=== PATIENT | female | born 1975 | race African-American/Black ===

== ENCOUNTER → 2022-05-31 | Outpatient (REF) | payer BC ==
[2022-05-31 19:08] LABS: BACTERIA, URINE SMALL AMOUNT; HYALINE CAST, URINE NONE SEEN /lpf (0-1); MUCUS, URINE SMALL AMOUNT (NEGATIVE); RBC, URINE 0-1 /hpf (0-3); SQUAMOUS EPITHELIAL CELL URINE SMALL AMOUNT /hpf (SMALL AMT)
== END ==
LOC: M LAB REF 16:56
PROVIDERS: ATTEND Internal Medicine
DX: R31.9 Hematuria, unspecified (principal)

== ENCOUNTER → 2022-05-31 | Outpatient (REF) | payer BC ==
[2022-05-31 18:05] LABS: FERRITIN 39.9 NG/ML (7.3-270.7)
[2022-05-31 18:07] LABS: PERCENT SATURATION 22.5 % (13.2-45.0)
== END ==
LOC: M LAB REF 16:55
PROVIDERS: ATTEND Internal Medicine
DX: D64.9 Anemia, unspecified (principal)

== ENCOUNTER → 2023-04-17 | Outpatient (REF) | payer BC | LOC: M SFHCWAGY 17:21 | PROVIDERS: ATTEND Nurse Practitioner Family | DX: Z12.4 Encounter for screening for malignant neoplasm of cervix (principal) | CPT/HCPCS: 87624; G0123 ==

== ENCOUNTER → 2023-04-17 | Outpatient (CLI) | payer BC | LOC: M WHC 15:01 | PROVIDERS: ATTEND Nurse Practitioner Family | DX: Z12.31 Encounter for screening mammogram for malignant neoplasm of breast (principal); R92.343 Mammographic extreme density, bilateral breasts ==

== ENCOUNTER 2023-08-06 16:46 | Observation (INO) | payer BC ==
[~2023-08-06] VITALS: Ht 165.1 cm; Wt 53.7 kg
[~2023-08-06 16:46] MED LIST: ATEN25TA PO; FOLI1TAB11 PO; HYDR500C3 PO; LISI5TAB11 PO
[2023-08-06] MEDS: MORPHINE 4 MG/ML 1ML VIAL IV ONE ×2 (17:48→21:06)
[2023-08-06] MEDS: NS 1,000 ML IV ONE (17:48)
[2023-08-06 17:49] LABS: VENOUS BASE EXCESS -1.1 (-2.0-2.0); VENOUS HCO3 23.5 MMOL/L (23.0-27.0); VENOUS O2 SATURATION 69.1 % (60.0-80.0); VENOUS PARTIAL PRESSURE CO2 38.2 mmHg (38.0-50.0); VENOUS PH 7.406 UNITS (7.330-7.430); VENOUS STANDARD HCO3 23.2 MMOL/L; VENOUS TOTAL CO2 24.6 MMOL/L (24.0-28.0)
[2023-08-06 17:56] LABS: MEAN CORPUSCULAR HEMOGLOBIN 29.1 pg (27.0-33.0); MEAN CORPUSCULAR HGB CONC 35.6 g/dl (32.0-36.5); MEAN CORPUSCULAR VOLUME 81.7 fl (80.0-96.0); PLATELET COUNT, AUTOMATED 504 10^3/uL (150-450); RED BLOOD COUNT 2.13 10^6/uL (4.00-5.40); WHITE BLOOD COUNT 11.6 10^3/uL (4.0-10.0)
[2023-08-06 18:00] LABS: HEMATOCRIT 17.4 % (36.0-47.0)
[2023-08-06 18:01] LABS: HEMOGLOBIN 6.2 g/dl (12.0-15.5)
[2023-08-06 18:12] LABS: INR 1.11; PROTHROMBIN TIME 13.9 SECONDS (12.5-14.5)
[2023-08-06 18:21] LABS: BASOPHILS 1 % (0-1); LYMPHOCYTES 12 % (16-44); MONOCYTES 1 % (0-5); NEUTROPHILS 86 % (28-66); PLATELET ESTIMATE INCREASED (NORMAL)
[2023-08-06 18:22] LABS: ANISOCYTOSIS 4+; POIKILOCYTOSIS 3+; SICKLE CELLS 3+
[2023-08-06 18:24] LABS: LIPASE 56 U/L (12-53)
[2023-08-06 18:27] LABS: ALBUMIN 3.3 G/DL (3.2-5.2); ALKALINE PHOSPHATASE 217 U/L (46-116); ALT/SGPT 40 U/L (7.0-40); AST/SGOT 100 U/L (<34); BILIRUBIN,DIRECT 1.7 MG/DL (<0.4); BILIRUBIN,TOTAL 4.5 MG/DL (0.3-1.2); BLOOD UREA NITROGEN 22 MG/DL (9-23); CALCIUM LEVEL 8.5 MG/DL (8.5-10.1); CARBON DIOXIDE LEVEL 24 MMOL/L (20-31); CHLORIDE LEVEL 104 MMOL/L (98-107); CK-MB VALUE MASS < 1.0 NG/ML (<3.6); CREATININE FOR GFR 1.19 MG/DL (0.55-1.30); GLOMERULAR FILTRATION RATE 51.3 (>58); GLUCOSE, FASTING 97 MG/DL (60-100); HCG, SERUM QUALITATIVE NEGATIVE (NEGATIVE); MAGNESIUM LEVEL 1.9 MG/DL (1.8-2.4); POTASSIUM SERUM 4.6 MMOL/L (3.5-5.1); SODIUM LEVEL 134 MMOL/L (136-145); TOTAL PROTEIN 7.5 G/DL (5.7-8.2)
[2023-08-06 18:29] LABS: RSV AMPLIFICATION NEGATIVE (NEGATIVE)
[2023-08-06 18:29] LABS: TARGET CELLS 1+
[2023-08-06 18:31] LABS: FREE T4 1.01 NG/DL (0.89-1.76); THYROID STIMULATING HORMONE 1.875 uIU/ML (0.55-4.78)
[2023-08-06 18:33] LABS: CPK CREATINE PHOSPHOKINASE 95 U/L (34-145); MB/CK RELATIVE INDEX 1.05 (< OR =4)
[2023-08-06 19:32] LABS: CK-MB VALUE MASS < 1.0 NG/ML (<3.6); CPK CREATINE PHOSPHOKINASE 83 U/L (34-145)
[2023-08-06] MEDS: ONDANSETRON 4MG 2ML VIAL IV ONE (21:06)
[2023-08-06] MEDS ORDERED: MULT-90 PO (22:41)
[2023-08-06] MEDS ORDERED: VITAD400CA PO (22:41)
[2023-08-06] MEDS ORDERED: HOME MED LIST COMPLETE! XX SCH (22:45)
[2023-08-06 23:10] VITALS: BP 128/66; TEMP 97; O2SAT 98
[2023-08-06] MEDS: NS 1,000 ML IV SCH (23:50)
[2023-08-07] VITALS (16 sets, daily range): BP systolic 105–143; BP diastolic 52–75; TEMP 96.8–100.9; O2SAT 91–98
[2023-08-07] MEDS: HYDROXYUREA 500 MG CAP PO SCH (00:41)
[2023-08-07] MEDS ORDERED: ONDANSETRON 4MG 2ML VIAL IV PRN (02:00)
[2023-08-07] MEDS: HYDROMORPHONE HCL 0.5 MG/ 0.5 ML SYRINGE IV PRN (03:24)
[2023-08-07] MEDS: HEPARIN SOD (PORCINE) 5000UNITS/ML 1ML VIAL/SYRINGE SC SCH (05:00)
[2023-08-07 06:35] LABS: MEAN CORPUSCULAR HEMOGLOBIN 28.9 pg (27.0-33.0); MEAN CORPUSCULAR HGB CONC 34.9 g/dl (32.0-36.5); MEAN CORPUSCULAR VOLUME 82.8 fl (80.0-96.0); PLATELET COUNT, AUTOMATED 504 10^3/uL (150-450); RED BLOOD COUNT 2.04 10^6/uL (4.00-5.40)
[2023-08-07 06:44] LABS: HEMATOCRIT 16.9 % (36.0-47.0)
[2023-08-07 06:48] LABS: HEMOGLOBIN 5.9 g/dl (12.0-15.5)
[2023-08-07 07:43] LABS: ALBUMIN 2.7 G/DL (3.2-5.2); ALKALINE PHOSPHATASE 190 U/L (46-116); ALT/SGPT 32 U/L (7.0-40); AST/SGOT 76 U/L (<34); BILIRUBIN,TOTAL 2.9 MG/DL (0.3-1.2); BLOOD UREA NITROGEN 14 MG/DL (9-23); CALCIUM LEVEL 8.1 MG/DL (8.5-10.1); CARBON DIOXIDE LEVEL 24 MMOL/L (20-31); CHLORIDE LEVEL 113 MMOL/L (98-107); CREATININE FOR GFR 0.85 MG/DL (0.55-1.30); GLOMERULAR FILTRATION RATE > 60.0 (>58); GLUCOSE, FASTING 104 MG/DL (60-100); POTASSIUM SERUM 4.2 MMOL/L (3.5-5.1); SODIUM LEVEL 141 MMOL/L (136-145); TOTAL PROTEIN 6.5 G/DL (5.7-8.2)
[2023-08-07] MEDS: IBUPROFEN 600MG TAB PO PRN (13:16)
[2023-08-07 14:33] LABS: HEMATOCRIT 22.4 % (36.0-47.0); HEMOGLOBIN 7.9 g/dl (12.0-15.5)
[2023-08-07] MEDS ORDERED: ACETAMINOPHEN TAB 650MG DOSE (2X325MG) PO PRN (15:50)
[2023-08-08] VITALS (8 sets, daily range): BP systolic 120–144; BP diastolic 64–76; TEMP 97.7–98.6; O2SAT 89–99
[2023-08-08 07:27] LABS: BASO % 0.4 % (0.0-1.0); EOS # 0.4 10^3/uL (0.0-0.5); EOS % 5.1 % (0.0-3.0); LYMPH # 1.5 10^3/uL (1.5-5.0); LYMPH % 17.6 % (24.0-44.0); MEAN CORPUSCULAR HEMOGLOBIN 29.5 pg (27.0-33.0); MEAN CORPUSCULAR HGB CONC 35.2 g/dl (32.0-36.5); MEAN CORPUSCULAR VOLUME 83.8 fl (80.0-96.0); MONO # 0.4 10^3/uL (0.0-0.8); MONO % 4.5 % (2.0-8.0); NEUTROPHILS # 6.1 10^3/uL (1.5-8.5); NEUTROPHILS % 71.9 % (36.0-66.0); PLATELET COUNT, AUTOMATED 427 10^3/uL (150-450); RED BLOOD COUNT 2.34 10^6/uL (4.00-5.40); WHITE BLOOD COUNT 8.5 10^3/uL (4.0-10.0)
[2023-08-08 07:28] LABS: HEMATOCRIT 19.6 % (36.0-47.0)
[2023-08-08 07:29] LABS: HEMOGLOBIN 6.9 g/dl (12.0-15.5)
[2023-08-08 12:06] LABS: HEMATOCRIT 18.9 % (36.0-47.0); HEMOGLOBIN 6.7 g/dl (12.0-15.5)
[2023-08-08] MEDS: FLUTICASONE PROP 0.05% NASAL SPRAY 16 GM (FLONASE) NARES SCH (14:00)
[2023-08-08 16:59] LABS: HEMOGLOBIN 7.2 g/dl (12.0-15.5)
[2023-08-08 17:12] LABS: HEMATOCRIT 20.4 % (36.0-47.0)
== END 2023-08-08 19:37 | disposition home or self-care (01) ==
LOC: M ED 16:46 → M ED INP 16:47 → M MSPAV 23:11
PROVIDERS: ADMIT Internal Medicine; ATTEND Student in an Organized Health Care Education/Training Program
DX: D57.00 Hb-SS disease with crisis, unspecified (principal); R50.9 Fever, unspecified; R07.9 Chest pain, unspecified; R10.9 Unspecified abdominal pain; E86.0 Dehydration; R11.2 Nausea with vomiting, unspecified; R76.0 Raised antibody titer; M90.58 Osteonecrosis in diseases classified elsewhere, other site; Z90.49 Acquired absence of other specified parts of digestive tract; Z83.2 Family history of diseases of the blood and blood-forming organs and certain disorders involving the immune mechanism; Z79.899 Other long term (current) drug therapy
CPT/HCPCS: 36415; 36430; 71046; 74018; 80048; 80053; 80076; 82550; 82553; 82803; 83020; 83690; 83735; 83880; 84439; 84443; 84484; 84703; 85014; 85018; 85025; 85027; 85610; 85660; 85730; 86140; 86850; 86900; 86901; 86920; 87040; 87486; 87581; 87631; 87633; 87798; 93005; 93041; 94760; 96361; 96372; 96374; 96375; 96376; 97161; 99285; J1170; J2405; P9016

== ENCOUNTER 2023-08-22 08:32 | Inpatient (IN) | payer BC ==
[2023-08-22] VITALS (9 sets, daily range): BP systolic 99–120; BP diastolic 55–65; TEMP 98.1–100.2; O2SAT 78–98
[~2023-08-22] VITALS: Ht 165.1 cm; Wt 54.7 kg
[~2023-08-22 08:32] MED LIST changes: +MULT-90 PO; +VITAD400CA PO
[2023-08-22] MEDS ORDERED: MOM 30ML SUSPENSION UDC PO PRN (09:05)
[2023-08-22] MEDS ORDERED: ACETAMINOPHEN TAB 650MG DOSE (2X325MG) PO PRN (09:05)
[2023-08-22] MEDS ORDERED: ISOVUE-370 76% 100ML VIAL As Ordered ONE (09:29)
[2023-08-22 09:52] LABS: MEAN CORPUSCULAR HEMOGLOBIN 32.7 pg (27.0-33.0); MEAN CORPUSCULAR VOLUME 89.1 fl (80.0-96.0); PLATELET COUNT, AUTOMATED 324 10^3/uL (150-450); RED BLOOD COUNT 1.56 10^6/uL (4.00-5.40); WHITE BLOOD COUNT 25.9 10^3/uL (4.0-10.0)
[2023-08-22 09:54] LABS: HEMATOCRIT 13.9 % (36.0-47.0); HEMOGLOBIN 5.1 g/dl (12.0-15.5)
[2023-08-22 09:55] LABS: MEAN CORPUSCULAR HGB CONC 36.7 g/dl (32.0-36.5)
[2023-08-22 10:07] LABS: INR 1.28; PROTHROMBIN TIME 15.6 SECONDS (12.5-14.5)
[2023-08-22 10:19] LABS: ALBUMIN 3.2 G/DL (3.2-5.2); BILIRUBIN,TOTAL 6.7 MG/DL (0.3-1.2); CALCIUM LEVEL 8.9 MG/DL (8.5-10.1); CREATININE FOR GFR 1.87 MG/DL (0.55-1.30); GLOMERULAR FILTRATION RATE 30.5 (>58); POTASSIUM SERUM 4.6 MMOL/L (3.5-5.1); TOTAL PROTEIN 7.8 G/DL (5.7-8.2)
[2023-08-22 10:30] LABS: PROCALCITONIN 3.75 ng/ml
[2023-08-22] MEDS: LR 1,000 ML IV ONE ×2 (11:25→13:33)
[2023-08-22] MEDS ORDERED: HYDROMORPHONE HCL 0.5 MG/ 0.5 ML SYRINGE IV PRN (11:35)
[2023-08-22] MEDS: HYDROMORPHONE HCL 0.5 MG/ 0.5 ML SYRINGE IV PRN (11:53)
[2023-08-22] MEDS ORDERED: IBUP200C28 PO (12:20)
[2023-08-22] MEDS ORDERED: HOME MED LIST COMPLETE! XX SCH (12:25)
[2023-08-22] MEDS: LR 1,000 ML IV SCH (12:30)
[2023-08-22 12:53] LABS: C REACTIVE PROTEIN QUANTITATIV 12.1 MG/DL (<1.0)
[2023-08-22] MEDS ORDERED: HEPARIN SOD (PORCINE) 5000UNITS/ML 1ML VIAL/SYRINGE IV ONE (14:10)
[2023-08-22] MEDS ORDERED: HEPARIN SOD (PORCINE) 5000UNITS/ML 1ML VIAL/SYRINGE IV PRN (14:10)
[2023-08-22 14:12] LABS: ABG BASE EXCESS -3.5 (-2.0-2.0); ABG HCO3 21.2 MMOL/L (22.0-26.0); ABG PARTIAL PRESSURE CO2 35.4 mmHg (35.0-45.0); ABG PARTIAL PRESSURE O2 68.1 mmHg (75.0-100.0); ABG STANDARD HCO3 21.4 MMOL/L. (22.0-26.0); ABG TOTAL CO2 22.3 MMOL/L (22.0-29.0); ABG pH (ARTERIAL) 7.395 UNITS (7.350-7.450)
[2023-08-22] MEDS: PIPERACILLIN/TAZOBACTAM SOD 3.375 GM in D5W MINI-BAG PLUS 50 ML IV SCH (14:58)
[2023-08-22] MEDS ORDERED: AZITHROMYCIN INJ 500 MG, VIAL MATE ADAPTER 1 EACH in NS 250 ML IV SCH (15:00)
[2023-08-22] MEDS: HEPARIN SOD (PORCINE) 5000UNITS/ML 1ML VIAL/SYRINGE IV ONE (15:08)
[2023-08-22] MEDS: HEPARIN DRIP 25,000 UNITS in IV 1 EA IV SCH (15:09)
[2023-08-22] MEDS: ALBUTEROL SULFATE 2.5MG/0.5ML INH NEB SOLN NEB PRN (15:11)
[2023-08-22] MEDS: VANCOMYCIN HCL 1,000 MG, VIAL MATE ADAPTER 1 EACH in D5W 250 ML IV ONE (16:02)
[2023-08-22 17:04] LABS: CALCIUM LEVEL 7.3 MG/DL (8.5-10.1); CREATININE FOR GFR 1.63 MG/DL (0.55-1.30); GLOMERULAR FILTRATION RATE 35.7 (>58); POTASSIUM SERUM 4.5 MMOL/L (3.5-5.1)
[2023-08-23] MEDS ORDERED: VANCOMYCIN HCL 750 MG, VIAL MATE ADAPTER 1 EACH in D5W 250 ML IV SCH (08:00)
[2023-08-23] MEDS ORDERED: PANTOPRAZOLE 40MG VIAL IV SCH (09:00)
== END 2023-08-22 17:42 | disposition short-term general hospital (02) | DRG 662 ==
LOC: M MSPAV 09:14 → M ICU 14:10
PROVIDERS: ADMIT Internal Medicine Medical Oncology; ATTEND Internal Medicine Medical Oncology
DX: D57.219 Sickle-cell/Hb-C disease with crisis, unspecified (principal); I26.99 Other pulmonary embolism without acute cor pulmonale; J96.01 Acute respiratory failure with hypoxia; N17.9 Acute kidney failure, unspecified; D57.01 Hb-SS disease with acute chest syndrome; I95.9 Hypotension, unspecified; N18.9 Chronic kidney disease, unspecified; E87.1 Hypo-osmolality and hyponatremia; E86.0 Dehydration; Z79.899 Other long term (current) drug therapy; Z11.52 Encounter for screening for COVID-19

== ENCOUNTER → 2023-09-23 | Outpatient (CLI) | payer BC ==
[~2023-09-23] MED LIST changes: +IBUP200C28 PO
== END ==
LOC: M RAD 08:01
PROVIDERS: ATTEND Internal Medicine
DX: I26.99 Other pulmonary embolism without acute cor pulmonale (principal); J98.11 Atelectasis

== ENCOUNTER → 2023-09-24 | Outpatient (REF) | payer BC ==
[2023-09-24 12:27] LABS: BASO # 0.1 10^3/uL (0.0-0.2); BASO % 0.6 % (0.0-1.0); EOS # 0.3 10^3/uL (0.0-0.5); EOS % 2.9 % (0.0-3.0); LYMPH # 2.8 10^3/uL (1.5-5.0); LYMPH % 31.6 % (24.0-44.0); MEAN CORPUSCULAR HEMOGLOBIN 35.4 pg (27.0-33.0); MEAN CORPUSCULAR VOLUME 101.1 fl (80.0-96.0); MONO # 0.5 10^3/uL (0.0-0.8); MONO % 5.9 % (2.0-8.0); NEUTROPHILS # 5.1 10^3/uL (1.5-8.5); NEUTROPHILS % 58.7 % (36.0-66.0); PLATELET COUNT, AUTOMATED 375 10^3/uL (150-450); RED BLOOD COUNT 1.75 10^6/uL (4.00-5.40); WHITE BLOOD COUNT 8.7 10^3/uL (4.0-10.0)
[2023-09-24 12:56] LABS: ALBUMIN 3.1 G/DL (3.2-5.2); ALKALINE PHOSPHATASE 464 U/L (46-116); ALT/SGPT 41 U/L (7.0-40); AST/SGOT 75 U/L (<34); BILIRUBIN,TOTAL 3.2 MG/DL (0.3-1.2); BLOOD UREA NITROGEN 13 MG/DL (9-23); CALCIUM LEVEL 8.4 MG/DL (8.5-10.1); CARBON DIOXIDE LEVEL 24 MMOL/L (20-31); CHLORIDE LEVEL 107 MMOL/L (98-107); GLOMERULAR FILTRATION RATE > 60.0 (>58); GLUCOSE, FASTING 92 MG/DL (60-100); MAGNESIUM LEVEL 1.8 MG/DL (1.8-2.4); POTASSIUM SERUM 3.9 MMOL/L (3.5-5.1); SODIUM LEVEL 138 MMOL/L (136-145); TOTAL PROTEIN 7.1 G/DL (5.7-8.2)
[2023-09-24 13:09] LABS: HEMATOCRIT 17.7 % (36.0-47.0); HEMOGLOBIN 6.2 g/dl (12.0-15.5)
[2023-09-24 15:00] LABS: APPEARANCE, URINE CLEAR (CLEAR); BACTERIA, URINE AUTO NEGATIVE (NEGATIVE); BILIRUBIN, URINE AUTO NEGATIVE (NEGATIVE); BLOOD, URINE BLOOD 1+ (NEGATIVE); COLOR, URINE YELLOW (YELLOW); GLUCOSE, URINE (UA) AUTO NEGATIVE (NEGATIVE); KETONE, URINE AUTO NEGATIVE (NEGATIVE); LEUKOCYTE ESTERASE, URINE AUTO NEGATIVE (NEGATIVE); MUCUS, URINE SMALL (NEGATIVE); NITRITE, URINE AUTO NEGATIVE (NEGATIVE); PROTEIN, URINE AUTO 2+ mg/dL (NEGATIVE); RBC, URINE AUTO 0 /HPF (0-3); SPECIFIC GRAVITY URINE AUTO 1.003 (1.002-1.035); SQUAMOUS EPITHELIAL CELL UR AU 3 /HPF (0-6); UROBILINOGEN, URINE AUTO 0.2 mg/dL (0.0-2.0); WBC, URINE AUTO 0 /HPF (0-3)
== END ==
LOC: M LAB REF 09:58
PROVIDERS: ATTEND Internal Medicine
DX: D57 Sickle-cell disorders (principal); N17.9 Acute kidney failure, unspecified; E87.5 Hyperkalemia; R53.1 Weakness; R80.9 Proteinuria, unspecified

== ENCOUNTER → 2023-10-06 | Outpatient (CLI) | payer BC | LOC: M RAD 16:04 | PROVIDERS: ATTEND Internal Medicine | DX: M25.552 Pain in left hip (principal); M85.9 Disorder of bone density and structure, unspecified ==

== ENCOUNTER → 2023-12-26 | Outpatient (CLI) | payer BC | LOC: M PLAIMG 13:00 | PROVIDERS: ATTEND Internal Medicine | DX: R91.8 Other nonspecific abnormal finding of lung field (principal); D57.219 Sickle-cell/Hb-C disease with crisis, unspecified; Z86.711 Personal history of pulmonary embolism ==

== ENCOUNTER 2024-07-26 08:46 | Inpatient (IN) | payer BC ==
[2024-07-26] VITALS (8 sets, daily range): BP systolic 104–149; BP diastolic 65–71; TEMP 97.4–98.2; O2SAT 92–100
[~2024-07-26] VITALS: Ht 165.1 cm; Wt 58.0 kg
[2024-07-26] MEDS: NS (Normal Saline) 0.9% 1,000 ML IV SCH (09:11)
[2024-07-26] MEDS: MORPHINE 4 MG/ML 1ML VIAL IV PRN (09:11)
[2024-07-26 09:28] LABS: HEMOGLOBIN 7.1 g/dl (12.0-15.5); MEAN CORPUSCULAR HEMOGLOBIN 31.7 pg (27.0-33.0); MEAN CORPUSCULAR VOLUME 90.6 fl (80.0-96.0); PLATELET COUNT, AUTOMATED 385 10^3/uL (150-450); RED BLOOD COUNT 2.24 10^6/uL (4.00-5.40); WHITE BLOOD COUNT 11.7 10^3/uL (4.0-10.0)
[2024-07-26 09:30] LABS: HEMATOCRIT 20.3 % (36.0-47.0)
[2024-07-26 09:34] LABS: INR 0.97; PROTHROMBIN TIME 13.2 SECONDS (12.5-14.5)
[2024-07-26 09:44] LABS: ANISOCYTOSIS 3+; EOSINOPHILS 2 % (0-3); LYMPHOCYTES 18 % (16-44); MONOCYTES 7 % (0-5); NEUTROPHILS 72 % (28-66); PLATELET ESTIMATE NORMAL (NORMAL); POIKILOCYTOSIS 3+; POLYCHROMASIA 2+; TARGET CELLS 2+
[2024-07-26 09:45] LABS: OVALOCYTES 2+
[2024-07-26 09:46] LABS: SICKLE CELLS 2+
[2024-07-26 09:47] LABS: TEAR DROP CELLS 1+
[2024-07-26 09:59] LABS: ALBUMIN 3.4 G/DL (3.2-5.2); ALKALINE PHOSPHATASE 312 U/L (35-104); ALT/SGPT 42 U/L (7.0-40); AST/SGOT 87 U/L (<34); BILIRUBIN,DIRECT 0.9 MG/DL (<0.4); BILIRUBIN,TOTAL 2.5 MG/DL (0.3-1.2); BLOOD UREA NITROGEN 15 MG/DL (9-23); CALCIUM LEVEL 8.7 MG/DL (8.5-10.1); CARBON DIOXIDE LEVEL 23 MMOL/L (20-31); CHLORIDE LEVEL 108 MMOL/L (98-107); CK-MB VALUE MASS < 1.0 NG/ML (<3.6); CREATININE FOR GFR 0.84 MG/DL (0.55-1.30); GLOMERULAR FILTRATION RATE > 60.0 (>51); GLUCOSE, FASTING 105 MG/DL (60-100); POTASSIUM SERUM 3.9 MMOL/L (3.5-5.1); SODIUM LEVEL 140 MMOL/L (136-145); TOTAL PROTEIN 7.5 G/DL (5.7-8.2)
[2024-07-26 10:00] LABS: FREE T4 1.08 NG/DL (0.89-1.76)
[2024-07-26 10:01] LABS: THYROID STIMULATING HORMONE 5.655 uIU/ML (0.55-4.78)
[2024-07-26 10:03] LABS: CPK CREATINE PHOSPHOKINASE 68 U/L (34-145); MB/CK RELATIVE INDEX 1.47 (< OR =4)
[2024-07-26] MEDS: HYDROMORPHONE HCL 0.5 MG/ 0.5 ML SYRINGE IV ONE ×2 (10:45→12:23)
[2024-07-26] MEDS ORDERED: ISOVUE-370 76% 100ML VIAL As Ordered ONE (10:49)
[2024-07-26 11:14] LABS: CK-MB VALUE MASS < 1.0 NG/ML (<3.6)
[2024-07-26 11:20] LABS: CPK CREATINE PHOSPHOKINASE 54 U/L (34-145); MB/CK RELATIVE INDEX 1.85 (< OR =4)
[2024-07-26] MEDS: cefTRIAXone SOD 1 GM in DEXTROSE 5% (D5W) ADV/MINI-BAG 50 ML IV ONE (12:11)
[2024-07-26] MEDS: AZITHROMYCIN 250MG TABLET PO ONE (12:11)
[2024-07-26] MEDS ORDERED: HOME MED LIST COMPLETE! XX SCH (12:20)
[2024-07-26] MEDS ORDERED: ACETAMINOPHEN 325 MG TAB PO PRN (12:55)
[2024-07-26] MEDS ORDERED: MOM 30ML SUSPENSION UDC PO PRN (12:55)
[2024-07-26] MEDS ORDERED: HYDROMORPHONE HCL 0.5 MG/ 0.5 ML SYRINGE IV PRN (13:05)
[2024-07-26] MEDS: DOCUSATE SODIUM 100MG CAPSULE PO SCH (13:11)
[2024-07-26 13:47] LABS: PROCALCITONIN 0.13 ng/ml
[2024-07-26] MEDS: lisinopriL 5 MG TAB PO SCH (14:01)
[2024-07-26] MEDS: HEPARIN SOD (PORCINE) 5000UNITS/ML 1ML VIAL/SYRINGE SC SCH (14:01)
[2024-07-26] MEDS: ATENOLOL 12.5MG PER 1/2 TABLET PO SCH (14:01)
[2024-07-26] MEDS: VITAMIN D (CHOLECALCIFEROL) 400 INTERNATIONAL UNITS TAB PO SCH (14:02)
[2024-07-26] MEDS: FOLIC ACID 1MG TAB PO SCH (14:02)
[2024-07-26] MEDS: LR 1,000 ML IV SCH (14:08)
[2024-07-26] MEDS: HYDROMORPHONE HCL 0.5 MG/ 0.5 ML SYRINGE IV PRN ×3 (14:47→18:54)
[2024-07-26] MEDS: ALBUTEROL SULFATE 2.5MG/0.5ML INH NEB SOLN INH SCH (15:56)
[2024-07-26] MEDS: ACETAMINOPHEN 500 MG TAB PO SCH (16:18)
[2024-07-26] MEDS: KETOROLAC 30 MG/ML 1ML VIAL IV SCH ×2 (16:19→21:10)
[2024-07-26 16:48] LABS: ABG BASE EXCESS -3.6 (-2.0-2.0); ABG HCO3 18.7 MMOL/L (22.0-26.0); ABG O2 SATURATION 96.4 % (95.0-99.0); ABG PARTIAL PRESSURE CO2 23.3 mmHg (35.0-45.0); ABG PARTIAL PRESSURE O2 98.8 mmHg (75.0-100.0); ABG STANDARD HCO3 21.4 MMOL/L. (22.0-26.0); ABG TOTAL CO2 19.4 MMOL/L (22.0-29.0); ABG pH (ARTERIAL) 7.523 UNITS (7.350-7.450)
[2024-07-26 16:56] LABS: C REACTIVE PROTEIN QUANTITATIV 0.78 MG/DL (<1.0)
[2024-07-26] MEDS ORDERED: LORazepam 0.5 MG TAB PO ONE (17:00)
[2024-07-26 17:01] LABS: ALBUMIN 2.9 G/DL (3.2-5.2); ALKALINE PHOSPHATASE 262 U/L (35-104); ALT/SGPT 38 U/L (7.0-40); AST/SGOT 74 U/L (<34); BILIRUBIN,DIRECT 0.9 MG/DL (<0.4); BILIRUBIN,TOTAL 2.1 MG/DL (0.3-1.2); BLOOD UREA NITROGEN 12 MG/DL (9-23); CARBON DIOXIDE LEVEL 20 MMOL/L (20-31); CHLORIDE LEVEL 112 MMOL/L (98-107); CREATININE FOR GFR 0.75 MG/DL (0.55-1.30); GLOMERULAR FILTRATION RATE > 60.0 (>51); GLUCOSE, FASTING 98 MG/DL (60-100); POTASSIUM SERUM 4.4 MMOL/L (3.5-5.1); SODIUM LEVEL 141 MMOL/L (136-145); TOTAL PROTEIN 6.6 G/DL (5.7-8.2)
[2024-07-26 17:18] LABS: BASO # 0.1 10^3/uL (0.0-0.2); BASO % 0.6 % (0.0-1.0); EOS # 0.2 10^3/uL (0.0-0.5); EOS % 1.6 % (0.0-3.0); LYMPH # 2.9 10^3/uL (1.5-5.0); LYMPH % 22.5 % (24.0-44.0); MEAN CORPUSCULAR HEMOGLOBIN 32.6 pg (27.0-33.0); MEAN CORPUSCULAR HGB CONC 36.1 g/dl (32.0-36.5); MEAN CORPUSCULAR VOLUME 90.4 fl (80.0-96.0); MONO # 0.9 10^3/uL (0.0-0.8); MONO % 7.1 % (2.0-8.0); NEUTROPHILS # 8.7 10^3/uL (1.5-8.5); NEUTROPHILS % 67.2 % (36.0-66.0); PLATELET COUNT, AUTOMATED 318 10^3/uL (150-450); RED BLOOD COUNT 1.87 10^6/uL (4.00-5.40); WHITE BLOOD COUNT 12.9 10^3/uL (4.0-10.0)
[2024-07-26 17:42] LABS: HEMATOCRIT 16.9 % (36.0-47.0); HEMOGLOBIN 6.1 g/dl (12.0-15.5)
[2024-07-26 17:47] LABS: ERYTHROCYTE SEDIMENTATION RATE 6 mm/hr (0-30)
[2024-07-26] MEDS: PANTOPRAZOLE 40MG VIAL IV SCH (18:19)
[2024-07-26] MEDS: ONDANSETRON 4MG TAB PO ONE (21:00)
[2024-07-27] VITALS (44 sets, daily range): BP systolic 114–157; BP diastolic 59–72; TEMP 97–99; O2SAT 86–100
[2024-07-27 07:00] LABS: BLOOD UREA NITROGEN 13 MG/DL (9-23); CALCIUM LEVEL 8.2 MG/DL (8.5-10.1); CARBON DIOXIDE LEVEL 22 MMOL/L (20-31); CHLORIDE LEVEL 109 MMOL/L (98-107); CREATININE FOR GFR 0.95 MG/DL (0.55-1.30); GLOMERULAR FILTRATION RATE > 60.0 (>51); GLUCOSE, FASTING 99 MG/DL (60-100); POTASSIUM SERUM 4.6 MMOL/L (3.5-5.1); SODIUM LEVEL 140 MMOL/L (136-145)
[2024-07-27] MEDS ORDERED: HYDROXYUREA 500 MG CAP PO SCH (09:00)
[2024-07-27] MEDS: AZITHROMYCIN 250MG TABLET PO SCH (09:10)
[2024-07-27 11:03] LABS: ALBUMIN 2.7 G/DL (3.2-5.2); BILIRUBIN,DIRECT 1.1 MG/DL (<0.4); BILIRUBIN,TOTAL 2.4 MG/DL (0.3-1.2); TOTAL PROTEIN 6.2 G/DL (5.7-8.2)
[2024-07-27 11:10] LABS: BASO # 0.1 10^3/uL (0.0-0.2); BASO % 0.6 % (0.0-1.0); EOS # 0.4 10^3/uL (0.0-0.5); EOS % 4.9 % (0.0-3.0); HEMATOCRIT 22.8 % (36.0-47.0); HEMOGLOBIN 8.2 g/dl (12.0-15.5); LYMPH # 1.8 10^3/uL (1.5-5.0); LYMPH % 20.5 % (24.0-44.0); MEAN CORPUSCULAR HEMOGLOBIN 30.6 pg (27.0-33.0); MEAN CORPUSCULAR VOLUME 85.1 fl (80.0-96.0); MONO # 0.5 10^3/uL (0.0-0.8); MONO % 6.3 % (2.0-8.0); NEUTROPHILS # 5.7 10^3/uL (1.5-8.5); PLATELET COUNT, AUTOMATED 309 10^3/uL (150-450); RED BLOOD COUNT 2.68 10^6/uL (4.00-5.40); WHITE BLOOD COUNT 8.6 10^3/uL (4.0-10.0)
[2024-07-27] MEDS: cefTRIAXone SOD 1 GM in DEXTROSE 5% (D5W) ADV/MINI-BAG 50 ML IV SCH (12:53)
[2024-07-27] MEDS: KETOROLAC 30 MG/ML 1ML VIAL IV SCH (21:30)
[2024-07-27] MEDS ORDERED: HYDROMORPHONE HCL 0.5 MG/ 0.5 ML SYRINGE IV PRN ×2 (21:45→22:47)
[2024-07-28] VITALS (23 sets, daily range): BP systolic 140–192; BP diastolic 70–83; TEMP 97.6–102.4; O2SAT 85–100
[2024-07-28] MEDS ORDERED: PERCOCET 5MG/325MG TAB PO PRN ×2 (06:15)
[2024-07-28] MEDS ORDERED: ACETAMINOPHEN 500 MG TAB PO PRN ×2 (06:15→16:35)
[2024-07-28 07:09] LABS: ALBUMIN 2.6 G/DL (3.2-5.2); ALKALINE PHOSPHATASE 263 U/L (35-104); ALT/SGPT 42 U/L (7.0-40); AST/SGOT 93 U/L (<34); BILIRUBIN,TOTAL 2.1 MG/DL (0.3-1.2); BLOOD UREA NITROGEN 15 MG/DL (9-23); CARBON DIOXIDE LEVEL 22 MMOL/L (20-31); CHLORIDE LEVEL 114 MMOL/L (98-107); CREATININE FOR GFR 0.87 MG/DL (0.55-1.30); GLOMERULAR FILTRATION RATE > 60.0 (>51); GLUCOSE, FASTING 102 MG/DL (60-100); POTASSIUM SERUM 3.8 MMOL/L (3.5-5.1); SODIUM LEVEL 147 MMOL/L (136-145)
[2024-07-28 07:22] LABS: BASO % 0.4 % (0.0-1.0); EOS # 0.5 10^3/uL (0.0-0.5); HEMATOCRIT 22.2 % (36.0-47.0); LYMPH # 1.8 10^3/uL (1.5-5.0); LYMPH % 21.6 % (24.0-44.0); MEAN CORPUSCULAR HEMOGLOBIN 30.5 pg (27.0-33.0); MEAN CORPUSCULAR VOLUME 84.7 fl (80.0-96.0); MONO # 0.6 10^3/uL (0.0-0.8); MONO % 7.3 % (2.0-8.0); NEUTROPHILS # 5.4 10^3/uL (1.5-8.5); NEUTROPHILS % 63.6 % (36.0-66.0); PLATELET COUNT, AUTOMATED 215 10^3/uL (150-450); RED BLOOD COUNT 2.62 10^6/uL (4.00-5.40); WHITE BLOOD COUNT 8.5 10^3/uL (4.0-10.0)
[2024-07-28] MEDS ORDERED: AZIT-12 PO (08:53)
[2024-07-28] MEDS ORDERED: HYDR-4571 PO (08:53)
[2024-07-28] MEDS ORDERED: CEFD1CAP9 PO (08:53)
[2024-07-28] MEDS: CEFDINIR 300 MG CAP (OMNICEF) PO SCH (09:20)
[2024-07-28] MEDS: IBUPROFEN 600MG TAB PO SCH (14:36)
[2024-07-28] MEDS: lisinopriL 5 MG TAB PO SCH (16:23)
[2024-07-28] MEDS: ATENOLOL 12.5MG PER 1/2 TABLET PO SCH (16:27)
[2024-07-29] VITALS: BP 160/71; TEMP 97.7; O2SAT 93
[2024-07-29 04:00] VITALS: BP 168/76; TEMP 98.9; O2SAT 92
[2024-07-29 07:10] LABS: BASO % 0.4 % (0.0-1.0); EOS # 0.7 10^3/uL (0.0-0.5); EOS % 7.5 % (0.0-3.0); HEMATOCRIT 22.6 % (36.0-47.0); HEMOGLOBIN 8.2 g/dl (12.0-15.5); LYMPH # 2.1 10^3/uL (1.5-5.0); LYMPH % 23.3 % (24.0-44.0); MEAN CORPUSCULAR HEMOGLOBIN 31.7 pg (27.0-33.0); MEAN CORPUSCULAR HGB CONC 36.3 g/dl (32.0-36.5); MEAN CORPUSCULAR VOLUME 87.3 fl (80.0-96.0); MONO # 0.6 10^3/uL (0.0-0.8); MONO % 6.9 % (2.0-8.0); NEUTROPHILS # 5.6 10^3/uL (1.5-8.5); NEUTROPHILS % 61.2 % (36.0-66.0); PLATELET COUNT, AUTOMATED 250 10^3/uL (150-450); RED BLOOD COUNT 2.59 10^6/uL (4.00-5.40); WHITE BLOOD COUNT 9.1 10^3/uL (4.0-10.0)
[2024-07-29 07:54] LABS: ALBUMIN 2.7 G/DL (3.2-5.2); ALKALINE PHOSPHATASE 291 U/L (35-104); ALT/SGPT 55 U/L (7.0-40); AST/SGOT 97 U/L (<34); BILIRUBIN,DIRECT 1.5 MG/DL (<0.4); BILIRUBIN,TOTAL 3.3 MG/DL (0.3-1.2); BLOOD UREA NITROGEN 15 MG/DL (9-23); CALCIUM LEVEL 8.2 MG/DL (8.5-10.1); CARBON DIOXIDE LEVEL 23 MMOL/L (20-31); CHLORIDE LEVEL 113 MMOL/L (98-107); CREATININE FOR GFR 0.92 MG/DL (0.55-1.30); GLOMERULAR FILTRATION RATE > 60.0 (>51); GLUCOSE, FASTING 91 MG/DL (60-100); POTASSIUM SERUM 4.1 MMOL/L (3.5-5.1); SODIUM LEVEL 146 MMOL/L (136-145); TOTAL PROTEIN 6.4 G/DL (5.7-8.2)
[2024-07-29 08:10] VITALS: BP 173/77; TEMP 98; O2SAT 93
[2024-07-29 08:47] LABS: LDH LACTATE DEHYDROGENASE 591 U/L (120-246)
[2024-07-29] MEDS: AZITHROMYCIN 250MG TABLET PO ONE (10:10)
[2024-07-29 12:38] VITALS: BP 163/73
[2024-07-29 12:39] VITALS: BP 163/73
[2024-07-30 19:57] LABS: URINE STREP PNEUMONIAE ANTIGEN NOT DETECTED (NOT DETECT)
== END 2024-07-29 13:30 | disposition home or self-care (01) | DRG 662 ==
LOC: M ED 08:46 → EDBD 08:46 → M ED INP 12:53 → M PCU 14:32
PROVIDERS: ADMIT Student in an Organized Health Care Education/Training Program; ATTEND Student in an Organized Health Care Education/Training Program
PROC: B246ZZZ Ultrasonography of Right and Left Heart (ICD-10-PCS; principal; 2024-07-27)
DX: D57.01 Hb-SS disease with acute chest syndrome (principal); J96.01 Acute respiratory failure with hypoxia; J18.9 Pneumonia, unspecified organism; I27.20 Pulmonary hypertension, unspecified; R79.89 Other specified abnormal findings of blood chemistry; I12.9 Hypertensive chronic kidney disease with stage 1 through stage 4 chronic kidney disease, or unspecified chronic kidney disease; J98.11 Atelectasis; N18.9 Chronic kidney disease, unspecified; Z79.899 Other long term (current) drug therapy; Z91.018 Allergy to other foods; Z86.711 Personal history of pulmonary embolism

== ENCOUNTER → 2024-08-24 | Outpatient (REF) | payer BC ==
[~2024-08-24] MED LIST changes: +AZIT-12 PO; +CEFD1CAP9 PO; +HYDR-4571 PO
[2024-08-24 11:47] LABS: BASO # 0.1 10^3/uL (0.0-0.2); BASO % 0.8 % (0.0-1.0); EOS # 0.7 10^3/uL (0.0-0.5); EOS % 6.6 % (0.0-3.0); HEMOGLOBIN 7.4 g/dl (12.0-15.5); LYMPH # 3.7 10^3/uL (1.5-5.0); LYMPH % 36.7 % (24.0-44.0); MEAN CORPUSCULAR HEMOGLOBIN 31.6 pg (27.0-33.0); MEAN CORPUSCULAR HGB CONC 35.7 g/dl (32.0-36.5); MEAN CORPUSCULAR VOLUME 88.5 fl (80.0-96.0); MONO # 0.9 10^3/uL (0.0-0.8); MONO % 8.5 % (2.0-8.0); NEUTROPHILS # 4.8 10^3/uL (1.5-8.5); NEUTROPHILS % 47.1 % (36.0-66.0); PLATELET COUNT, AUTOMATED 341 10^3/uL (150-450); RED BLOOD COUNT 2.34 10^6/uL (4.00-5.40); WHITE BLOOD COUNT 10.2 10^3/uL (4.0-10.0)
[2024-08-24 11:51] LABS: HEMATOCRIT 20.7 % (36.0-47.0)
[2024-08-24 12:34] LABS: ALBUMIN 3.2 G/DL (3.2-5.2); ALKALINE PHOSPHATASE 314 U/L (35-104); ALT/SGPT 41 U/L (7.0-40); AST/SGOT 79 U/L (<34); BILIRUBIN,TOTAL 2.9 MG/DL (0.3-1.2); BLOOD UREA NITROGEN 15 MG/DL (9-23); CALCIUM LEVEL 8.6 MG/DL (8.5-10.1); CARBON DIOXIDE LEVEL 24 MMOL/L (20-31); CHLORIDE LEVEL 105 MMOL/L (98-107); CREATININE FOR GFR 0.77 MG/DL (0.55-1.30); GLOMERULAR FILTRATION RATE > 60.0 (>51); GLUCOSE, FASTING 102 MG/DL (60-100); POTASSIUM SERUM 4.2 MMOL/L (3.5-5.1); SODIUM LEVEL 137 MMOL/L (136-145); TOTAL PROTEIN 7.3 G/DL (5.7-8.2)
== END ==
LOC: M LAB REF 10:32
PROVIDERS: ATTEND Specialist
DX: D57.1 Sickle-cell disease without crisis (principal)

== ENCOUNTER 2024-10-29 10:39 | Day surgery (SDC) | payer BC ==
[~2024-10-29] VITALS: Ht 165.1 cm; Wt 54.4 kg
[2024-10-29 11:36] VITALS: TEMP 97.1
[2024-10-29] MEDS ORDERED: propofoL 200 MG/20 ML VIAL As Ordered ONE (11:42)
[2024-10-29] MEDS ORDERED: LIDOCAINE 2% 100MG/5ML SDV (FOR ANES.) As Ordered ONE (11:42)
[2024-10-29 11:51] VITALS: BP 115/56; O2SAT 98
== END 2024-10-29 12:20 | disposition home or self-care (01) ==
LOC: M OPP 10:39
PROVIDERS: ATTEND Surgery
DX: R10.13 Epigastric pain (principal); Z91.018 Allergy to other foods; Z79.899 Other long term (current) drug therapy; D57.80 Other sickle-cell disorders without crisis; Z86.711 Personal history of pulmonary embolism

== ENCOUNTER 2025-02-04 07:44 | Inpatient (IN) | payer BC ==
[2025-02-04] VITALS (14 sets, daily range): BP systolic 106–138; BP diastolic 58–72; TEMP 97.9–99.3; O2SAT 85–98
[~2025-02-04] VITALS: Ht 165.1 cm; Wt 62.0 kg
[2025-02-04] MEDS: ONDANSETRON 4MG 2ML VIAL IV ONE (08:44)
[2025-02-04] MEDS: NS (Normal Saline) 0.9% 1,000 ML IV ONE (08:44)
[2025-02-04] MEDS: MORPHINE 4 MG/ML 1 ML VIAL IV PRN (08:45)
[2025-02-04] MEDS ORDERED: ISOVUE-370 76% 100 ML VIAL As Ordered ONE (08:51)
[2025-02-04 08:59] LABS: BASO # 0.1 10^3/uL (0.0-0.2); BASO % 0.5 % (0.0-1.0); EOS # 0.0 10^3/uL (0.0-0.5); EOS % 0.3 % (0.0-3.0); LYMPH # 1.6 10^3/uL (1.5-5.0); LYMPH % 16.4 % (24.0-44.0); MONO # 0.5 10^3/uL (0.0-0.8); MONO % 4.8 % (2.0-8.0); NEUTROPHILS # 7.2 10^3/uL (1.5-8.5); NEUTROPHILS % 74.9 % (36.0-66.0)
[2025-02-04 09:11] LABS: CK-MB VALUE MASS 1.9 NG/ML (<3.6)
[2025-02-04 09:14] LABS: INR 0.99
[2025-02-04 09:15] LABS: ALT/SGPT 35.0 U/L (7.0-40); AST/SGOT 150.0 U/L (<34); CALCIUM LEVEL 9.0 MG/DL (8.5-10.1); CARBON DIOXIDE LEVEL 24.0 MMOL/L (20-31); CHLORIDE LEVEL 103.0 MMOL/L (98-107); CREATININE FOR GFR 1.06 MG/DL (0.55-1.30); GLOMERULAR FILTRATION RATE 64.0 (>51); POTASSIUM SERUM 4.4 MMOL/L (3.5-5.1); SODIUM LEVEL 137.0 MMOL/L (136-145)
[2025-02-04 09:17] LABS: CPK CREATINE PHOSPHOKINASE 86.0 U/L (34-145); MB/CK RELATIVE INDEX 2.2 (< OR =4)
[2025-02-04 10:49] LABS: KETONE, URINE AUTO RFX NEGATIVE (NEGATIVE); LEUKOCYTE ESTERASE UR AUTO RFX NEGATIVE (NEGATIVE); NITRITE, URINE AUTO RFX NEGATIVE (NEGATIVE); RBC, URINE AUTO RFX 1 /HPF (0-3); SQUAM EPITHELIAL CELL UR AURFX 1 /HPF (0-6); WBC, URINE AUTO RFX 2 /HPF (0-3)
[2025-02-04 11:06] LABS: CK-MB VALUE MASS 1.3 NG/ML (<3.6)
[2025-02-04 11:07] LABS: CPK CREATINE PHOSPHOKINASE 77.0 U/L (34-145); MB/CK RELATIVE INDEX 1.68 (< OR =4)
[2025-02-04] MEDS ORDERED: HOME MED LIST COMPLETE! XX SCH (11:15)
[2025-02-04] MEDS: HYDROMORPHONE HCL 0.5 MG/0.5 ML SYRINGE IV PRN (11:26)
[2025-02-04] MEDS: D5W/0.45% SODIUM CHLORIDE 1,000 ML IV ONE (11:39)
[2025-02-04] MEDS: cefTRIAXone SOD 1 GM in DEXTROSE 5% (D5W) ADV/MINI-BAG 50 ML IV ONE (11:42)
[2025-02-04] MEDS: DOXYCYCLINE HYCLATE 100 MG in DEXTROSE 5% (D5W) MINI-BAG PLU 100 ML IV ONE (12:46)
[2025-02-04 15:20] LABS: SICKLE CELL SCREEN POSITIVE (NEGATIVE)
[2025-02-04] MEDS: D5W/0.45% SODIUM CHLORIDE 1,000 ML IV SCH (16:40)
[2025-02-04] MEDS: HYDROmorphone HCL 2 MG/ML 1 ML VIAL IV PRN (17:14)
[2025-02-04] MEDS ORDERED: ALBUTEROL SULFATE 2.5 MG/0.5 ML INH CONCENTRATE NEB SOLN NEB PRN (17:50)
[2025-02-04] MEDS: ONDANSETRON 4MG 2ML VIAL IV PRN (18:01)
[2025-02-04] MEDS ORDERED: NALOXONE INJ 0.4 MG/1 ML VIAL IV PRN (21:40)
[2025-02-04] MEDS ORDERED: diphenhydrAMINE 50 MG/ML VIAL IV PRN (21:40)
[2025-02-04] MEDS ORDERED: EPIDURAL/PCA KEYS XX PRN (21:40)
[2025-02-04] MEDS ORDERED: ONDANSETRON 4MG 2ML VIAL IV PRN (21:40)
[2025-02-04] MEDS: DOCUSATE SODIUM 100 MG CAPSULE PO SCH (21:53)
[2025-02-04] MEDS: DOXYCYCLINE HYCLATE 100 MG TABLET PO SCH (21:54)
[2025-02-04] MEDS: FOLIC ACID 1 MG TAB PO SCH (21:54)
[2025-02-04] MEDS: HYDROXYUREA 500 MG CAP PO SCH (21:55)
[2025-02-04] MEDS: NACL 0.9% IV PRN (22:20)
[2025-02-04] MEDS: MORPHINE IV PRN (22:20)
[2025-02-05] VITALS (20 sets, daily range): BP systolic 114–173; BP diastolic 54–78; TEMP 98.3–102.7; O2SAT 87–99
[2025-02-05 05:20] LABS: LYMPHOCYTES 11 % (16-44); MONOCYTES 2 % (0-5); NEUTROPHILS 87 % (28-66); PLATELET ESTIMATE INVALID (NORMAL)
[2025-02-05 05:44] LABS: ALT/SGPT 37.0 U/L (7.0-40); AST/SGOT 198.0 U/L (<34); CALCIUM LEVEL 7.9 MG/DL (8.5-10.1); CARBON DIOXIDE LEVEL 20.0 MMOL/L (20-31); CHLORIDE LEVEL 105.0 MMOL/L (98-107); CREATININE FOR GFR 1.07 MG/DL (0.55-1.30); GLOMERULAR FILTRATION RATE 63.3 (>51); MAGNESIUM LEVEL 2.0 MG/DL (1.8-2.4); POTASSIUM SERUM 4.7 MMOL/L (3.5-5.1); SODIUM LEVEL 136.0 MMOL/L (136-145)
[2025-02-05] MEDS: HYDROMORPHONE HCL 0.5 MG/0.5 ML SYRINGE IV PRN ×2 (08:32→14:45)
[2025-02-05] MEDS: ACETAMINOPHEN *IV* 1,000 MG in IV 1 EA IV ONE (09:51)
[2025-02-05] MEDS ORDERED: VANCOMYCIN HCL 1,000 MG in IV FLUID PLACE HOLDER 1 EA IV SCH (10:20)
[2025-02-05] MEDS ORDERED: PIPERACILLIN/TAZOBACTAM SOD 3.375 GM in DEXTROSE 5% (D5W) ADV/MINI-BAG 50 ML IV SCH (10:20)
[2025-02-05] MEDS: PIPERACILLIN/TAZOBACTAM SOD 4.5 GM in DEXTROSE 5% (D5W) ADV/MINI-BAG 50 ML IV SCH (11:31)
[2025-02-05] MEDS ORDERED: cefTRIAXone SOD 1 GM in DEXTROSE 5% (D5W) ADV/MINI-BAG 50 ML IV SCH (12:00)
[2025-02-05] MEDS: VANCOMYCIN HCL 1,500 MG, VIAL MATE ADAPTER 1 EACH in NS 500 ML IV ONE (13:28)
[2025-02-05] MEDS: ACETAMINOPHEN 325 MG TAB PO PRN (16:55)
[2025-02-05] MEDS: VANCOMYCIN HCL 750 MG, VIAL MATE ADAPTER 1 EACH in NS 250 ML IV SCH (23:15)
[2025-02-06] VITALS (25 sets, daily range): BP systolic 106–127; BP diastolic 56–66; TEMP 99–101.2; O2SAT 92–98
[2025-02-06 05:56] LABS: BASO # 0.0 10^3/uL (0.0-0.2); BASO % 0.2 % (0.0-1.0); EOS # 0.1 10^3/uL (0.0-0.5); EOS % 1.1 % (0.0-3.0); LYMPH # 0.9 10^3/uL (1.5-5.0); LYMPH % 8.4 % (24.0-44.0); MONO # 0.3 10^3/uL (0.0-0.8); MONO % 2.7 % (2.0-8.0); NEUTROPHILS # 9.1 10^3/uL (1.5-8.5); NEUTROPHILS % 86.7 % (36.0-66.0); PLATELET COUNT, AUTOMATED 149 10^3/uL (150-450)
[2025-02-06 06:19] LABS: CALCIUM LEVEL 8.0 MG/DL (8.5-10.1); CARBON DIOXIDE LEVEL 23.0 MMOL/L (20-31); CHLORIDE LEVEL 111.0 MMOL/L (98-107); CREATININE FOR GFR 1.13 MG/DL (0.55-1.30); GLOMERULAR FILTRATION RATE 59.3 (>51); POTASSIUM SERUM 4.3 MMOL/L (3.5-5.1); SODIUM LEVEL 143.0 MMOL/L (136-145)
[2025-02-06] MEDS: NS 0.45% 1,000 ML IV SCH (10:18)
[2025-02-06] MEDS: VANCOMYCIN HCL 1,250 MG, VIAL MATE ADAPTER 1 EACH in NS 250 ML IV SCH (12:35)
[2025-02-07] VITALS (32 sets, daily range): BP systolic 121–152; BP diastolic 59–71; TEMP 97.4–100.8; O2SAT 86–98
[2025-02-07 06:01] LABS: BASO # 0.0 10^3/uL (0.0-0.2); BASO % 0.2 % (0.0-1.0); EOS # 0.3 10^3/uL (0.0-0.5); EOS % 3.3 % (0.0-3.0); LYMPH # 1.0 10^3/uL (1.5-5.0); LYMPH % 9.8 % (24.0-44.0); MONO # 0.3 10^3/uL (0.0-0.8); MONO % 2.5 % (2.0-8.0); NEUTROPHILS # 8.5 10^3/uL (1.5-8.5); NEUTROPHILS % 83.3 % (36.0-66.0); PLATELET COUNT, AUTOMATED 133 10^3/uL (150-450)
[2025-02-07 06:22] LABS: CALCIUM LEVEL 8.0 MG/DL (8.5-10.1); CARBON DIOXIDE LEVEL 22 MMOL/L (20-31); CHLORIDE LEVEL 107 MMOL/L (98-107); CREATININE FOR GFR 1.03 MG/DL (0.55-1.30); GLOMERULAR FILTRATION RATE 66.2 (>51); POTASSIUM SERUM 3.9 MMOL/L (3.5-5.1); SODIUM LEVEL 142 MMOL/L (136-145)
[2025-02-07] MEDS ORDERED: MORPHINE IV PRN (11:45)
[2025-02-07] MEDS ORDERED: NACL 0.9% IV PRN (11:45)
[2025-02-08] VITALS (32 sets, daily range): BP systolic 110–148; BP diastolic 57–72; TEMP 97.5–101.1; O2SAT 91–100
[2025-02-08 06:42] LABS: BASO # 0.0 10^3/uL (0.0-0.2); BASO % 0.3 % (0.0-1.0); EOS # 0.6 10^3/uL (0.0-0.5); EOS % 5.6 % (0.0-3.0); LYMPH # 0.8 10^3/uL (1.5-5.0); LYMPH % 7.3 % (24.0-44.0); MONO # 0.5 10^3/uL (0.0-0.8); MONO % 4.4 % (2.0-8.0); NEUTROPHILS # 8.5 10^3/uL (1.5-8.5); NEUTROPHILS % 81.7 % (36.0-66.0); PLATELET COUNT, AUTOMATED 124 10^3/uL (150-450)
[2025-02-08 06:57] LABS: VANCOMYCIN RANDOM 10.2 UG/ML
[2025-02-08 06:58] LABS: CALCIUM LEVEL 8.2 MG/DL (8.5-10.1); CARBON DIOXIDE LEVEL 24 MMOL/L (20-31); CHLORIDE LEVEL 110 MMOL/L (98-107); CREATININE FOR GFR 0.93 MG/DL (0.55-1.30); GLOMERULAR FILTRATION RATE 74.9 (>51); POTASSIUM SERUM 3.6 MMOL/L (3.5-5.1); SODIUM LEVEL 147 MMOL/L (136-145)
[2025-02-08] MEDS: VANCOMYCIN HCL 750 MG, VIAL MATE ADAPTER 1 EACH in NS 250 ML IV SCH (07:52)
[2025-02-08] MEDS: NS 0.45% 1,000 ML IV SCH (11:53)
[2025-02-08 13:15] LABS: LDH LACTATE DEHYDROGENASE 1378 U/L (120-246)
[2025-02-08] MEDS ORDERED: diphenhydrAMINE 50 MG/ML VIAL IV PRN (14:35)
[2025-02-08] MEDS: AZITHROMYCIN 250 MG TABLET PO SCH (15:42)
[2025-02-08] MEDS ORDERED: IMMUNE GLOBULIN 10% 10 GM in IV 1 EA IV SCH (17:00)
[2025-02-08] MEDS: IMMUNE GLOBULIN 10% 10 GM in IV 1 EA IV SCH (18:00)
[2025-02-08] MEDS ORDERED: IMMUNE GLOBULIN 10% 20 GM in IV 1 EA IV SCH (18:00)
[2025-02-08] MEDS: IMMUNE GLOBULIN 10% 20 GM in IV 1 EA IV SCH (20:17)
[2025-02-08] MEDS ORDERED: PILL CUTTER 1 EACH XX ONE (20:25)
[2025-02-09] VITALS (38 sets, daily range): BP systolic 121–160; BP diastolic 63–72; TEMP 97–99.8; O2SAT 92–98
[2025-02-09 06:19] LABS: CALCIUM LEVEL 8.4 MG/DL (8.5-10.1); CARBON DIOXIDE LEVEL 27 MMOL/L (20-31); CHLORIDE LEVEL 108 MMOL/L (98-107); CREATININE FOR GFR 0.80 MG/DL (0.55-1.30); GLOMERULAR FILTRATION RATE 89.7 (>51); POTASSIUM SERUM 3.7 MMOL/L (3.5-5.1); SODIUM LEVEL 144 MMOL/L (136-145)
[2025-02-09 06:23] LABS: PLATELET COUNT, AUTOMATED 136 10^3/uL (150-450)
[2025-02-09 06:27] LABS: LYMPHOCYTES 8 % (16-44); NEUTROPHILS 92 % (28-66); NUCLEATED RED BLOOD CELL 2 % (0-0)
[2025-02-09 06:29] LABS: PLATELET ESTIMATE DECREASED (NORMAL)
[2025-02-09 06:30] LABS: LDH LACTATE DEHYDROGENASE 1305 U/L (120-246)
[2025-02-09] MEDS: MOM 30 ML SUSPENSION UDC PO PRN (09:21)
[2025-02-09 17:47] LABS: HEMOGLOBINOPATHY EVAL HCT 30.0 % (35.0-45.0); HEMOGLOBINOPATHY EVAL HGB 9.9 g/dL (11.7-15.5); HEMOGLOBINOPATHY EVAL HGB A 37.3 % (>96.0); HEMOGLOBINOPATHY EVAL HGB A2 2.9 % (2.0-3.2); HEMOGLOBINOPATHY EVAL HGB F 6.3 % (<2.0); HEMOGLOBINOPATHY EVAL HGB S 53.5 % (0.0); HEMOGLOBINOPATHY EVAL MCH 31.9 pg (27.0-33.0); HEMOGLOBINOPATHY EVAL MCV 96.8 fL (80.0-100.0); HEMOGLOBINOPATHY EVAL RBC 3.10 Mill/uL (3.80-5.10); HEMOGLOBINOPATHY EVAL RDW 16.4 % (11.0-15.0)
[2025-02-10] VITALS (31 sets, daily range): BP systolic 121–186; BP diastolic 60–84; TEMP 97.2–99.1; O2SAT 95–99
[2025-02-10 05:53] LABS: BASO # 0.0 10^3/uL (0.0-0.2); BASO % 0.2 % (0.0-1.0); EOS # 0.0 10^3/uL (0.0-0.5); EOS % 0.0 % (0.0-3.0); LYMPH # 1.0 10^3/uL (1.5-5.0); LYMPH % 10.9 % (24.0-44.0); MONO # 0.2 10^3/uL (0.0-0.8); MONO % 1.9 % (2.0-8.0); NEUTROPHILS # 8.2 10^3/uL (1.5-8.5); NEUTROPHILS % 86.1 % (36.0-66.0); PLATELET COUNT, AUTOMATED 165 10^3/uL (150-450)
[2025-02-10 06:20] LABS: CALCIUM LEVEL 7.9 MG/DL (8.5-10.1); CARBON DIOXIDE LEVEL 26 MMOL/L (20-31); CHLORIDE LEVEL 106 MMOL/L (98-107); CREATININE FOR GFR 0.84 MG/DL (0.55-1.30); GLOMERULAR FILTRATION RATE 84.6 (>51); POTASSIUM SERUM 3.4 MMOL/L (3.5-5.1); SODIUM LEVEL 143 MMOL/L (136-145)
[2025-02-10 06:31] LABS: LDH LACTATE DEHYDROGENASE 979 U/L (120-246)
[2025-02-10] MEDS: POTASSIUM CHLORIDE 10MEQ SR TABLET PO SCH (09:52)
[2025-02-10] MEDS: amLODIPine 5 MG TAB PO SCH (20:26)
[2025-02-10] MEDS: CEFPODOXIME PROXETIL 200 MG TABLET PO SCH (20:26)
[2025-02-10] MEDS: PANTOPRAZOLE 40MG TAB PO SCH (20:26)
[2025-02-11] VITALS (23 sets, daily range): BP systolic 149–180; BP diastolic 73–107; TEMP 97.1–98.5; O2SAT 95–100
[2025-02-11 06:47] LABS: BASO # 0.0 10^3/uL (0.0-0.2); BASO % 0.2 % (0.0-1.0); EOS # 0.0 10^3/uL (0.0-0.5); EOS % 0.0 % (0.0-3.0); LYMPH # 2.8 10^3/uL (1.5-5.0); LYMPH % 28.4 % (24.0-44.0); MONO # 0.5 10^3/uL (0.0-0.8); MONO % 4.6 % (2.0-8.0); NEUTROPHILS # 6.4 10^3/uL (1.5-8.5); NEUTROPHILS % 64.9 % (36.0-66.0); PLATELET COUNT, AUTOMATED 176 10^3/uL (150-450)
[2025-02-11 07:20] LABS: CALCIUM LEVEL 8.2 MG/DL (8.5-10.1); CARBON DIOXIDE LEVEL 24 MMOL/L (20-31); CHLORIDE LEVEL 107 MMOL/L (98-107); CREATININE FOR GFR 0.86 MG/DL (0.55-1.30); GLOMERULAR FILTRATION RATE 82.3 (>51); POTASSIUM SERUM 3.8 MMOL/L (3.5-5.1); SODIUM LEVEL 142 MMOL/L (136-145)
[2025-02-11 07:31] LABS: LDH LACTATE DEHYDROGENASE 966 U/L (120-246)
[2025-02-11] MEDS: MAALOX 30 ML SUSP *UDC PO PRN (09:04)
[2025-02-11] MEDS: VITAMIN A & D OINTMENT 42.5GM EXT SCH (09:59)
[2025-02-11] MEDS: KETOROLAC 30 MG/ML 1 ML VIAL IV ONE (13:58)
[2025-02-11] MEDS: hydrALAZINE 20 MG/ML 1 ML VIAL IV ONE (19:16)
[2025-02-11] MEDS ORDERED: KETOROLAC 30 MG/ML 1 ML VIAL IV PRN (20:20)
[2025-02-12] VITALS (11 sets, daily range): BP systolic 120–173; BP diastolic 60–85; TEMP 97.1–98.7; O2SAT 97–99
[2025-02-12 06:34] LABS: BASO # 0.0 10^3/uL (0.0-0.2); BASO % 0.2 % (0.0-1.0); EOS # 0.0 10^3/uL (0.0-0.5); EOS % 0.0 % (0.0-3.0); LYMPH # 2.5 10^3/uL (1.5-5.0); LYMPH % 26.1 % (24.0-44.0); MONO # 0.6 10^3/uL (0.0-0.8); MONO % 6.5 % (2.0-8.0); NEUTROPHILS # 6.2 10^3/uL (1.5-8.5); NEUTROPHILS % 65.5 % (36.0-66.0); PLATELET COUNT, AUTOMATED 244 10^3/uL (150-450)
[2025-02-12 07:03] LABS: CALCIUM LEVEL 8.4 MG/DL (8.5-10.1); CARBON DIOXIDE LEVEL 25 MMOL/L (20-31); CHLORIDE LEVEL 107 MMOL/L (98-107); CREATININE FOR GFR 0.78 MG/DL (0.55-1.30); GLOMERULAR FILTRATION RATE > 90.0 (>51); POTASSIUM SERUM 3.7 MMOL/L (3.5-5.1); SODIUM LEVEL 143 MMOL/L (136-145)
[2025-02-12 07:19] LABS: LDH LACTATE DEHYDROGENASE 825 U/L (120-246)
[2025-02-12] MEDS: CALCIUM CARBONATE 500 MG CHEW U/D PO PRN (08:35)
[2025-02-12] MEDS: KETOROLAC 30 MG/ML 1 ML VIAL IV ONE (10:13)
[2025-02-12] MEDS: **hydrALAZINE HCL** 25 MG TAB PO SCH (17:33)
[2025-02-13] VITALS: BP 131/62; TEMP 97.3; O2SAT 98
[2025-02-13 04:23] VITALS: BP 134/70; TEMP 97.8; O2SAT 99
[2025-02-13 06:59] LABS: LDH LACTATE DEHYDROGENASE 963 U/L (120-246)
[2025-02-13 07:19] VITALS: BP 149/72; TEMP 98.4; O2SAT 97
[2025-02-13 07:59] LABS: PLATELET COUNT, AUTOMATED 300 10^3/uL (150-450)
[2025-02-13 08:18] LABS: CALCIUM LEVEL 7.7 MG/DL (8.5-10.1); CARBON DIOXIDE LEVEL 21 MMOL/L (20-31); CHLORIDE LEVEL 106 MMOL/L (98-107); CREATININE FOR GFR 1.04 MG/DL (0.55-1.30); GLOMERULAR FILTRATION RATE 65.5 (>51); POTASSIUM SERUM 5.9 MMOL/L (3.5-5.1); SODIUM LEVEL 139 MMOL/L (136-145)
[2025-02-13 11:31] VITALS: BP 141/67; TEMP 97.5; O2SAT 98
[2025-02-13 11:54] VITALS: BP 141/67
== END 2025-02-13 15:32 | disposition home or self-care (01) | DRG 720 ==
LOC: M ED 07:44 → M ED INP 07:45 → M MSPAV 16:49 → M PCU 18:33 → OBSVTOIN 02-05 09:26 → M PCU 02-05 12:02
PROVIDERS: ADMIT Student in an Organized Health Care Education/Training Program; ATTEND Student in an Organized Health Care Education/Training Program
PROC: 30233N1 Transfusion of Nonautologous Red Blood Cells into Peripheral Vein, Percutaneous Approach (ICD-10-PCS; principal; 2025-02-04)
DX: A41.9 Sepsis, unspecified organism (principal); J96.01 Acute respiratory failure with hypoxia; D57.01 Hb-SS disease with acute chest syndrome; D84.9 Immunodeficiency, unspecified; I27.20 Pulmonary hypertension, unspecified; J18.9 Pneumonia, unspecified organism; I36.1 Nonrheumatic tricuspid (valve) insufficiency; K31.84 Gastroparesis; D73.0 Hyposplenism; K76.89 Other specified diseases of liver; I12.9 Hypertensive chronic kidney disease with stage 1 through stage 4 chronic kidney disease, or unspecified chronic kidney disease; N18.9 Chronic kidney disease, unspecified; Z79.899 Other long term (current) drug therapy; Z91.018 Allergy to other foods; Z86.711 Personal history of pulmonary embolism; Z90.49 Acquired absence of other specified parts of digestive tract; E87.6 Hypokalemia

== ENCOUNTER → 2025-02-17 | Outpatient (REF) ==
[2025-02-17 09:27] LABS: SOFIA COVID ANTIGEN NEGATIVE (NEGATIVE)
== END ==
LOC: M EMP 09:09
PROVIDERS: ATTEND Family Medicine
DX: Z11.52 Encounter for screening for COVID-19 (principal)

== ENCOUNTER 2025-02-25 05:03 | Inpatient (IN) | payer BC ==
[~2025-02-25] VITALS: Ht 165.1 cm; Wt 48.4 kg
[2025-02-25 05:51] LABS: VENOUS BASE EXCESS -3.4 (-2.0-2.0); VENOUS HCO3 21.5 MMOL/L (23.0-27.0); VENOUS O2 SATURATION 74.6 % (60.0-80.0); VENOUS PARTIAL PRESSURE CO2 38.2 mmHg (38.0-50.0); VENOUS PARTIAL PRESSURE O2 50.7 mmHg (30.0-50.0); VENOUS PH 7.369 UNITS (7.330-7.430); VENOUS STANDARD HCO3 21.3 MMOL/L; VENOUS TOTAL CO2 22.7 MMOL/L (24.0-28.0)
[2025-02-25 05:53] LABS: BASO # 0.1 10^3/uL (0.0-0.2); BASO % 0.5 % (0.0-1.0); EOS # 0.0 10^3/uL (0.0-0.5); EOS % 0.4 % (0.0-3.0); LYMPH # 1.2 10^3/uL (1.5-5.0); LYMPH % 11.4 % (24.0-44.0); MONO # 0.6 10^3/uL (0.0-0.8); MONO % 6.2 % (2.0-8.0); NEUTROPHILS # 8.3 10^3/uL (1.5-8.5); NEUTROPHILS % 80.8 % (36.0-66.0); PLATELET COUNT, AUTOMATED 733 10^3/uL (150-450)
[2025-02-25] MEDS: MIDAZOLAM 5 MG/ML 1 ML VIAL IM ONE (05:55)
[2025-02-25 06:17] LABS: ETHYL ALCOHOL (ETHANOL) < 0.003 % (0.000-0.010)
[2025-02-25 06:19] LABS: SALICYLATE LEVEL < 3.0 MG/DL (<30)
[2025-02-25 06:24] LABS: ALT/SGPT 44 U/L (7.0-40); AST/SGOT 81 U/L (<34); CALCIUM LEVEL 9.4 MG/DL (8.5-10.1); CARBON DIOXIDE LEVEL 23 MMOL/L (20-31); CHLORIDE LEVEL 106 MMOL/L (98-107); CREATININE FOR GFR 1.90 MG/DL (0.55-1.30); GLOMERULAR FILTRATION RATE 31.8 (>51); POTASSIUM SERUM 4.6 MMOL/L (3.5-5.1); SODIUM LEVEL 142 MMOL/L (136-145)
[2025-02-25] MEDS: NS (Normal Saline) 0.9% 1,000 ML IV ONE (06:44)
[2025-02-25 08:06] LABS: KETONE, URINE AUTO RFX NEGATIVE (NEGATIVE); LEUKOCYTE ESTERASE UR AUTO RFX NEGATIVE (NEGATIVE); MUCUS, URINE RFX SMALL (NEGATIVE); NITRITE, URINE AUTO RFX NEGATIVE (NEGATIVE); RBC, URINE AUTO RFX 12 /HPF (0-3); SQUAM EPITHELIAL CELL UR AURFX 1 /HPF (0-6); WBC, URINE AUTO RFX 3 /HPF (0-3)
[2025-02-25 08:14] LABS: AMPHETAMINES LEVEL URINE NEGATIVE (NEGATIVE); BARBITURATES URINE NEGATIVE (NEGATIVE); BENZODIAZEPINES URINE NEGATIVE (NEGATIVE); CANNABINOIDS URINE NEGATIVE (NEGATIVE); COCAINE METABOLITE URINE NEGATIVE (NEGATIVE); METHADONE URINE NEGATIVE (NEGATIVE); OPIATES URINE NEGATIVE (NEGATIVE); PHENCYCLIDINE URINE NEGATIVE (NEGATIVE)
[2025-02-25 09:50] LABS: LDH LACTATE DEHYDROGENASE 535 U/L (120-246)
[2025-02-25] MEDS ORDERED: HOME MED LIST COMPLETE! XX SCH (10:10)
[2025-02-25 10:23] LABS: PLATELET ESTIMATE INCREASED (NORMAL)
[2025-02-25] MEDS ORDERED: NS (Normal Saline) 0.9% 1,000 ML IV SCH (11:00)
[2025-02-25 13:04] VITALS: BP 142/70; TEMP 97.1; O2SAT 99
[2025-02-25 14:40] LABS: VITAMIN B12 LEVEL 713 PG/ML (211-911)
[2025-02-25 16:22] VITALS: BP 117/56; TEMP 98; O2SAT 96
[2025-02-25] MEDS: NS (Normal Saline) 0.9% 1,000 ML IV SCH (17:19)
[2025-02-25 17:52] LABS: CALCIUM LEVEL 8.9 MG/DL (8.5-10.1); CARBON DIOXIDE LEVEL 25.0 MMOL/L (20-31); CHLORIDE LEVEL 111.0 MMOL/L (98-107); CREATININE FOR GFR 1.29 MG/DL (0.55-1.30); GLOMERULAR FILTRATION RATE 50.6 (>51); POTASSIUM SERUM 4.2 MMOL/L (3.5-5.1); SODIUM LEVEL 146.0 MMOL/L (136-145)
[2025-02-25] MEDS: THIAMINE INJection 500 MG in NS 100 ML IV SCH (18:12)
[2025-02-25 19:18] VITALS: BP 112/96; TEMP 97.8; O2SAT 97
[2025-02-25] MEDS: methylPREDNISolone 1,000 MG, VIAL MATE ADAPTER 1 EACH in NS 100 ML IV SCH (21:00)
[2025-02-25 23:34] VITALS: BP 116/60; TEMP 98.7; O2SAT 96
[2025-02-25] MEDS: **hydrALAZINE HCL** 25 MG TAB PO SCH (23:36)
[2025-02-26 04:06] VITALS: BP 119/68; TEMP 98.7; O2SAT 95
[2025-02-26] MEDS: OLANZapine INTRAMUSCULAR 10MG VIAL IM ONE (06:49)
[2025-02-26 07:24] VITALS: BP 133/76; TEMP 97.9; O2SAT 96
[2025-02-26] MEDS: methylPREDNISolone 1,000 MG, VIAL MATE ADAPTER 1 EACH in NS 100 ML IV SCH (10:07)
[2025-02-26 11:57] VITALS: BP 143/83; TEMP 98.2; O2SAT 97
[2025-02-26] MEDS: OLANZapine INTRAMUSCULAR 10MG VIAL IM STA ×2 (13:15→19:45)
[2025-02-26 16:00] VITALS: BP 150/83; TEMP 98.4; O2SAT 96
[2025-02-26] MEDS ORDERED: OLANZapine 5 MG TAB PO PRN (18:55)
[2025-02-26] MEDS: diphenhydrAMINE 50 MG/ML VIAL IV STA (20:04)
[2025-02-26] MEDS: HALOPERIDOL LACTATE 5 MG/ML VIAL IV STA (20:06)
[2025-02-26] MEDS: NS 500 ML IV ONE (20:30)
[2025-02-26] MEDS ORDERED: NS 500 ML IV ONE (20:30)
[2025-02-27] VITALS (7 sets, daily range): BP systolic 108–164; BP diastolic 65–93; TEMP 97–98.4; O2SAT 95–99
[2025-02-27] MEDS: diphenhydrAMINE 50 MG/ML VIAL IV STA (02:02)
[2025-02-27 09:45] LABS: BASO # 0.0 10^3/uL (0.0-0.2); BASO % 0.1 % (0.0-1.0); EOS # 0.0 10^3/uL (0.0-0.5); EOS % 0.0 % (0.0-3.0); LYMPH # 1.1 10^3/uL (1.5-5.0); LYMPH % 14.8 % (24.0-44.0); MONO # 0.2 10^3/uL (0.0-0.8); MONO % 3.0 % (2.0-8.0); NEUTROPHILS # 6.0 10^3/uL (1.5-8.5); NEUTROPHILS % 81.8 % (36.0-66.0); PLATELET COUNT, AUTOMATED 622 10^3/uL (150-450)
[2025-02-27 10:17] LABS: ALT/SGPT 39.0 U/L (7.0-40); AST/SGOT 57.0 U/L (<34); CALCIUM LEVEL 9.3 MG/DL (8.5-10.1); CARBON DIOXIDE LEVEL 20.0 MMOL/L (20-31); CHLORIDE LEVEL 113.0 MMOL/L (98-107); CREATININE FOR GFR 1.36 MG/DL (0.55-1.30); GLOMERULAR FILTRATION RATE 47.5 (>51); POTASSIUM SERUM 4.0 MMOL/L (3.5-5.1); SODIUM LEVEL 144.0 MMOL/L (136-145)
[2025-02-27] MEDS: HALOPERIDOL LACTATE 5 MG/ML VIAL IM PRN (12:16)
[2025-02-27] MEDS: diphenhydrAMINE 50 MG/ML VIAL IM PRN (12:16)
[2025-02-27] MEDS: THIAMINE 100 MG TAB PO SCH (20:36)
[2025-02-28] VITALS (8 sets, daily range): BP systolic 121–159; BP diastolic 67–92; TEMP 97.2–98.4; O2SAT 97–100
[2025-02-28 05:46] LABS: BASO # 0.0 10^3/uL (0.0-0.2); BASO % 0.2 % (0.0-1.0); EOS # 0.0 10^3/uL (0.0-0.5); EOS % 0.2 % (0.0-3.0); LYMPH # 3.5 10^3/uL (1.5-5.0); LYMPH % 29.1 % (24.0-44.0); MONO # 0.6 10^3/uL (0.0-0.8); MONO % 4.9 % (2.0-8.0); NEUTROPHILS # 7.7 10^3/uL (1.5-8.5); NEUTROPHILS % 65.1 % (36.0-66.0); PLATELET COUNT, AUTOMATED 544 10^3/uL (150-450)
[2025-02-28 06:25] LABS: ALT/SGPT 33.0 U/L (7.0-40); AST/SGOT 49.0 U/L (<34); CALCIUM LEVEL 8.5 MG/DL (8.5-10.1); CARBON DIOXIDE LEVEL 22.0 MMOL/L (20-31); CHLORIDE LEVEL 115.0 MMOL/L (98-107); CREATININE FOR GFR 1.28 MG/DL (0.55-1.30); GLOMERULAR FILTRATION RATE 51.0 (>51); POTASSIUM SERUM 3.5 MMOL/L (3.5-5.1); SODIUM LEVEL 144.0 MMOL/L (136-145)
[2025-02-28] MEDS: HYDROXYUREA 500 MG CAP PO SCH (22:23)
[2025-02-28] MEDS: FOLIC ACID 1 MG TAB PO SCH (22:25)
[2025-02-28] MEDS: ATENOLOL 12.5 MG PER 1/2 TABLET PO SCH (22:25)
[2025-03-01] VITALS (8 sets, daily range): BP systolic 121–150; BP diastolic 60–79; TEMP 97.3–97.4; O2SAT 97–99
[2025-03-01] MEDS ORDERED: ONDANSETRON 4MG 2ML VIAL IV PRN (01:40)
[2025-03-01] MEDS: ONDANSETRON 4MG TAB PO PRN (01:51)
[2025-03-01 06:00] LABS: BASO # 0.0 10^3/uL (0.0-0.2); BASO % 0.3 % (0.0-1.0); EOS # 0.2 10^3/uL (0.0-0.5); EOS % 1.3 % (0.0-3.0); LYMPH # 4.6 10^3/uL (1.5-5.0); LYMPH % 38.7 % (24.0-44.0); MONO # 0.8 10^3/uL (0.0-0.8); MONO % 6.5 % (2.0-8.0); NEUTROPHILS # 6.3 10^3/uL (1.5-8.5); NEUTROPHILS % 52.6 % (36.0-66.0)
[2025-03-01 06:04] LABS: PLATELET COUNT, AUTOMATED 430 10^3/uL (150-450)
[2025-03-01 06:28] LABS: ALT/SGPT 34.0 U/L (7.0-40); AST/SGOT 50.0 U/L (<34); CALCIUM LEVEL 8.3 MG/DL (8.5-10.1); CARBON DIOXIDE LEVEL 22.0 MMOL/L (20-31); CHLORIDE LEVEL 112.0 MMOL/L (98-107); CREATININE FOR GFR 1.22 MG/DL (0.55-1.30); GLOMERULAR FILTRATION RATE 54.1 (>51); POTASSIUM SERUM 3.9 MMOL/L (3.5-5.1); SODIUM LEVEL 145.0 MMOL/L (136-145)
[2025-03-01] MEDS: OLANZapine 5 MG TAB PO SCH (20:35)
[2025-03-01] MEDS: OLANZapine 5 MG TAB PO PRN (21:47)
[2025-03-01] MEDS: LIDOCAINE 4% CREAM 5 GM (LMX4) TOP PRN (23:51)
[2025-03-02] MEDS: ACETAMINOPHEN 325 MG TAB PO ONE ×2 (01:11→06:24)
[2025-03-02] MEDS: NS 500 ML IV ONE (02:30)
[2025-03-02] MEDS: MORPHINE SULFATE TAB IMM. REL. 15 MG PO ONE (04:01)
[2025-03-02] MEDS: traMADol 50 MG TAB PO PRN (08:49)
[2025-03-02 11:20] VITALS: BP 128/76; TEMP 97.2; O2SAT 98
[2025-03-02] MEDS ORDERED: TRAM50TA2 PO (15:04)
[2025-03-02] MEDS ORDERED: THIA100TA PO (15:04)
[2025-03-02] MEDS ORDERED: HYDR25TA87 PO (15:04)
[2025-03-02] MEDS ORDERED: OLAN1TAB16 PO ×2 (15:04)
[2025-03-02 17:46] VITALS: BP 121/66
[2025-03-02 17:50] VITALS: O2SAT 96
[2025-03-02 18:00] VITALS: BP 121/66
[2025-03-02 19:51] VITALS: BP 118/67; TEMP 97.3; O2SAT 97
[2025-03-02] MEDS: OLANZapine INTRAMUSCULAR 10MG VIAL IM PRN (20:41)
== END 2025-03-02 21:50 | DRG 52 ==
LOC: M ED 05:03 → M ED INP 11:10 → M PCU 12:57
PROVIDERS: ADMIT Internal Medicine Nephrology; ATTEND Internal Medicine Nephrology
DX: G92.8 Other toxic encephalopathy (principal); I27.20 Pulmonary hypertension, unspecified; N17.9 Acute kidney failure, unspecified; D57.1 Sickle-cell disease without crisis; F30.2 Manic episode, severe with psychotic symptoms; I07.1 Rheumatic tricuspid insufficiency; E80.6 Other disorders of bilirubin metabolism; I12.9 Hypertensive chronic kidney disease with stage 1 through stage 4 chronic kidney disease, or unspecified chronic kidney disease; R19.7 Diarrhea, unspecified; N18.9 Chronic kidney disease, unspecified; Z86.11 Personal history of tuberculosis; K75.4 Autoimmune hepatitis; Z91.018 Allergy to other foods; Z79.899 Other long term (current) drug therapy; M87.076 Idiopathic aseptic necrosis of unspecified foot

== ENCOUNTER 2025-03-02 16:20 | Inpatient (IN) | payer BC ==
[~2025-03-02] VITALS: Ht 165.1 cm; Wt 48.4 kg
[~2025-03-02 16:20] MED LIST changes: +HYDR25TA87 PO; +OLAN1TAB16 PO; +THIA100TA PO; +TRAM50TA2 PO
[2025-03-02] MEDS ORDERED: IBUPROFEN 400 MG TAB PO PRN (17:00)
[2025-03-02] MEDS ORDERED: MOM 30 ML SUSPENSION UDC PO PRN (17:00)
[2025-03-02] MEDS ORDERED: HALOPERIDOL 5 MG TAB PO PRN (17:00)
[2025-03-02] MEDS ORDERED: OLANZapine 5 MG TAB PO PRN (17:00)
[2025-03-02] MEDS ORDERED: ACETAMINOPHEN 325 MG TAB PO PRN (17:00)
[2025-03-02] MEDS ORDERED: MAALOX 30 ML SUSP *UDC PO PRN (17:00)
[2025-03-03 06:43] VITALS: BP 125/65; TEMP 98.3; O2SAT 97
[2025-03-03] MEDS ORDERED: traMADol 50 MG TAB PO PRN (07:45)
[2025-03-03] MEDS: NICOTINE 14 MG/24 HR TRANSDERMAL TD SCH (08:18)
[2025-03-03] MEDS ORDERED: CEPACOL LOZENGE PO PRN (14:50)
[2025-03-03] MEDS: FLUZONE VACCINE TRIVALENT PF(25-26) 0.5ML SYRINGE IM.IMMUN ONE (15:52)
[2025-03-03] MEDS: PNEUMOC 21-VAL CONJ-DIP CRM/PF 0.5 ML SYRINGE IM.IMMUN ONE (15:55)
[2025-03-03 16:24] VITALS: BP 129/60; TEMP 98.1; O2SAT 95
[2025-03-03] MEDS: **hydrALAZINE HCL** 25 MG TAB PO SCH (20:39)
[2025-03-03] MEDS: FOLIC ACID 1 MG TAB PO SCH (20:39)
[2025-03-03] MEDS: traZODone 50 MG TAB PO PRN (20:39)
[2025-03-03] MEDS: ATENOLOL 12.5 MG PER 1/2 TABLET PO SCH (20:40)
[2025-03-03] MEDS: OLANZapine 5 MG TAB PO SCH (20:47)
[2025-03-04] MEDS: OLANZapine ORAL DISINTEGRATING TAB 5MG PO PRN (02:54)
[2025-03-04 07:59] VITALS: BP 122/62; TEMP 97.9; O2SAT 96
[2025-03-04 15:26] VITALS: BP 145/68; TEMP 98.1; O2SAT 96
[2025-03-04] MEDS: guaiFENesin ER TABLET 600 MG TAB PO PRN (23:38)
[2025-03-05] MEDS: IPRATROPIUM 0.5 MG/ALBUTEROL 2.5 MG INH SOL UD 3 ML NEB PRN (00:16)
[2025-03-05] MEDS: HALOPERIDOL LACTATE 5 MG/ML VIAL IM STA (03:47)
[2025-03-05] MEDS: THIAMINE 100 MG TAB PO SCH (09:00)
[2025-03-05 15:32] VITALS: BP 130/63; TEMP 98.2; O2SAT 96
[2025-03-05] MEDS: TRIMETHOPRIM/SULFAMETH 80/400 MG TAB PO SCH (20:34)
[2025-03-05] MEDS: DOXYCYCLINE HYCLATE 100 MG TABLET PO SCH (20:34)
[2025-03-05] MEDS: HYDROXYUREA 500 MG CAP PO SCH (20:34)
[2025-03-06 07:52] LABS: BASO # 0.1 10^3/uL (0.0-0.2); BASO % 0.8 % (0.0-1.0); EOS # 0.5 10^3/uL (0.0-0.5); EOS % 4.7 % (0.0-3.0); LYMPH # 3.2 10^3/uL (1.5-5.0); LYMPH % 31.9 % (24.0-44.0); MONO # 1.2 10^3/uL (0.0-0.8); MONO % 11.4 % (2.0-8.0); NEUTROPHILS # 5.0 10^3/uL (1.5-8.5); NEUTROPHILS % 49.5 % (36.0-66.0); PLATELET COUNT, AUTOMATED 227 10^3/uL (150-450)
[2025-03-06 08:16] LABS: ALT/SGPT 38.0 U/L (7.0-40); AST/SGOT 69.0 U/L (<34); C REACTIVE PROTEIN QUANTITATIV 1.7 MG/DL (<1.0); CALCIUM LEVEL 8.6 MG/DL (8.5-10.1); CARBON DIOXIDE LEVEL 24.0 MMOL/L (20-31); CHLORIDE LEVEL 107.0 MMOL/L (98-107); CREATININE FOR GFR 0.92 MG/DL (0.55-1.30); GLOMERULAR FILTRATION RATE 75.9 (>51); POTASSIUM SERUM 4.2 MMOL/L (3.5-5.1); SODIUM LEVEL 140.0 MMOL/L (136-145)
[2025-03-06 15:22] VITALS: BP 140/71; TEMP 98; O2SAT 94
[2025-03-06] MEDS: LORazepam 1 MG TAB PO PRN (20:08)
[2025-03-06 20:09] VITALS: BP 140/71
[2025-03-07 06:56] VITALS: BP 143/74; TEMP 98.8; O2SAT 95
[2025-03-07 15:04] VITALS: BP 131/60; TEMP 98.1; O2SAT 95
[2025-03-07] MEDS: OLANZapine 10 MG TAB PO SCH (20:19)
[2025-03-08 06:31] VITALS: BP 125/63; TEMP 97.9; O2SAT 97
[2025-03-08] MEDS ORDERED: DOXY100T PO (08:35)
[2025-03-08] MEDS ORDERED: OLAN1TAB20 PO (08:35)
[2025-03-08] MEDS ORDERED: SULF400T14 PO (08:35)
== END 2025-03-08 11:19 | disposition home or self-care (01) | DRG 756 ==
LOC: M PSY 21:51
PROVIDERS: ADMIT Internal Medicine; ATTEND Internal Medicine
DX: F41.9 Anxiety disorder, unspecified (principal); F05 Delirium due to known physiological condition; I27.20 Pulmonary hypertension, unspecified; K75.4 Autoimmune hepatitis; N18.30 Chronic kidney disease, stage 3 unspecified; D57.1 Sickle-cell disease without crisis; I36.1 Nonrheumatic tricuspid (valve) insufficiency; Z78.1 Physical restraint status; I12.9 Hypertensive chronic kidney disease with stage 1 through stage 4 chronic kidney disease, or unspecified chronic kidney disease; I49.9 Cardiac arrhythmia, unspecified; Z86.711 Personal history of pulmonary embolism; Z91.018 Allergy to other foods; Z79.899 Other long term (current) drug therapy; Z56.6 Other physical and mental strain related to work

== ENCOUNTER → 2025-04-14 | Outpatient (CLI) | payer BC ==
[~2025-04-14] MED LIST changes: +DOXY100T PO; +GADOXETATE DISODIUM 2.5 MMOL/10 ML VIAL As Ordered ONE; +OLAN1TAB20 PO; +SULF400T14 PO
== END ==
LOC: M RAD 14:31
PROVIDERS: ATTEND Internal Medicine
DX: K76.89 Other specified diseases of liver (principal); G93.89 Other specified disorders of brain; R41.89 Other symptoms and signs involving cognitive functions and awareness